=== PATIENT | male | born 1975 | race Two or more races ===

== ENCOUNTER → 2021-08-06 | Emergency (ER) | payer OTHER ==
[~2021-08-06] VITALS: Ht 188 cm; Wt 167.4 kg
[~2021-08-06] MED LIST: METFORMIN HCL1000 M2 PO
== END | disposition home or self-care (01) ==
LOC: ER 12:48
DX: R05.8 Other specified cough (principal); R09.81 Nasal congestion; R50.9 Fever, unspecified

== ENCOUNTER 2022-11-20 13:12 | Emergency (ER) | payer OTHER ==
[~2022-11-20] VITALS: Ht 188 cm; Wt 120.2 kg
== END 2022-11-20 17:56 | disposition home or self-care (01) ==
LOC: ER 13:12
DX: T14.90XA Injury, unspecified, initial encounter (principal); W18.30XA Fall on same level, unspecified, initial encounter; Y93.89 Activity, other specified; Y92.512 Supermarket, store or market as the place of occurrence of the external cause; Y99.9 Unspecified external cause status; R07.81 Pleurodynia; M25.512 Pain in left shoulder; E11.9 Type 2 diabetes mellitus without complications; Z79.84 Long term (current) use of oral hypoglycemic drugs